=== PATIENT | male | born 1980 | race Asian ===

== ENCOUNTER → 2022-07-24 | Outpatient (CLI) | payer OTHER | LOC: M RAD 13:35 | PROVIDERS: ATTEND Internal Medicine Pulmonary Disease | DX: R06.00 Dyspnea, unspecified (principal) ==

== ENCOUNTER → 2023-02-19 | Outpatient (CLI) | payer OTHER | LOC: M RAD 17:26 | PROVIDERS: ATTEND Psychiatry & Neurology Neurology | DX: S06.0X0S Concussion without loss of consciousness, sequela (principal); R41.3 Other amnesia ==

== ENCOUNTER → 2023-11-24 | Outpatient (CLI) | payer OTHER | LOC: M SLEEP 20:00 | PROVIDERS: ATTEND Physician Assistant | DX: G47.33 Obstructive sleep apnea (adult) (pediatric) (principal) ==

== ENCOUNTER → 2023-12-09 | Outpatient (CLI) | payer OTHER | LOC: M SLEEP 20:00 | PROVIDERS: ATTEND Physician Assistant | DX: G47.33 Obstructive sleep apnea (adult) (pediatric) (principal) ==